=== PATIENT | male | born 1985 | race Two or more races ===

== ENCOUNTER 2017-06-25 06:54 | Emergency (ER) | payer BC ==
[~2017-06-25] VITALS: Ht 188 cm; Wt 88.0 kg
[2017-06-25 06:56] VITALS: BP 112/70
== END 2017-06-25 08:45 | disposition left against medical advice (07) ==
LOC: ED 08:39
DX: R10.9 Unspecified abdominal pain (principal); Z53.21 Procedure and treatment not carried out due to patient leaving prior to being seen by health care provider